=== PATIENT | male | born 1995 | race African-American/Black ===

== ENCOUNTER 2019-01-02 11:49 | Emergency (ER) | payer SELFPAY ==
[~2019-01-02] VITALS: Ht 172.7 cm; Wt 61.0 kg
[2019-01-02 11:50] VITALS: BP 118/75
== END 2019-01-02 12:21 | disposition left against medical advice (07) ==
LOC: ER 11:49
DX: Z53.21 Procedure and treatment not carried out due to patient leaving prior to being seen by health care provider (principal)